=== PATIENT | male | born 1995 | race Caucasian/White ===

== ENCOUNTER 2018-07-23 14:07 | Outpatient (RCR) | payer OTHER ==
[~2018-07-23] VITALS: Ht 185.4 cm; Wt 89.9 kg
[~2018-07-23 14:07] MED LIST: FLAGYL 250250 MG/TAB PO; LEVAQUIN 5500 MG/TA1 PO; NORCO 325 MG-7.1 TAB PO; RITALIN 20M20 MG/TAB PO
[2018-07-23] MEDS ORDERED: PREDNISONE20 MG PO (14:29)
[2018-07-23] MEDS ORDERED: ZANTAC 150MG T150 MG PO (14:30)
[2018-07-23 14:31] VITALS: BP 138/62; PULSE 73; TEMP 98.4
[2018-07-23 14:38] LABS: MEAN CELL VOLUME 72 fl (80.0-100.0); MEAN CORPUSCULAR HGB CONC 29 g/dl (33.0-37.0); MEAN PLATELET VOLUME 9.1 fl (7.4-10.4); PLATELET COUNT 406 K/mm3 (130-400); RED BLOOD COUNT 4.53 M/mm3 (4.20-5.60); REDCELL DISTRIBUTION WIDTH-CV 17.1 % (11.5-14.5)
[2018-07-23 14:47] LABS: HEMATOCRIT 32.7 % (42.0-52.0); HEMOGLOBIN 9.4 g/dl (13.5-18.0); MEAN CORPUSCULAR HEMOGLOBIN 21 pg (27.0-31.0)
[2018-07-23 15:45] VITALS: BP 112/65; PULSE 66; TEMP 98.5
[2018-07-23 16:15] VITALS: BP 106/57; PULSE 76; TEMP 98.5
[2018-07-23 16:45] VITALS: BP 114/58; PULSE 66; TEMP 98.1
[2018-07-23 17:15] VITALS: BP 98/63; PULSE 66; TEMP 98.1
[2018-07-23 17:45] VITALS: BP 104/60; PULSE 56; TEMP 98.1
== END 2018-08-06 18:53 | disposition home or self-care (01) ==
LOC: EUO 14:07
PROVIDERS: Internal Medicine Gastroenterology
DX: K50.014 Crohn's disease of small intestine with abscess (principal)
CPT/HCPCS: J1200; J1745; J7050